=== PATIENT | male | born 1965 | race Caucasian/White ===

== ENCOUNTER 2017-09-16 17:29 | Emergency (ER) | payer OTHER ==
[2017-09-16 17:31] VITALS: BP 96/54; PULSE 85; RESP 18; TEMP 98.3; O2SAT 96
--- NOTE | 2017-09-16 19:04 | PD ---
HPI Chief Complaint: Depression Time Seen by Provider: 18:55 Travel History International Travel<30 days: No Contact w/Intl Traveler<30days: No Traveled to known affect area: No History of Present Illness HPI 52-year-old male presents emergency department with request of a bus pass. Says he is here for bike week and is 'stressed and depressed' because he is unable to get back to [place] where he lives. He thinks maybe did not make enough money which is why he does not have enough money to get home. Doesn't know what to do. Says he went to [facility] for help but they were unable to help. He denies SI/HI. He has no other complaints today. PFSH Past Medical History Cardiovascular Problems: Yes Social History Tobacco Use: Yes Allergies-Medications (Allergen,Severity, Reaction): Coded Allergies: penicillin G (Unverified Allergy, Unknown, 02/11/17) Reported Meds & Prescriptions Reported Meds & Active Scripts Active No Active Prescriptions or Reported Medications Review of Systems Except as stated in HPI: all other systems reviewed are Neg Physical Exam Narrative GENERAL: WD, WN in NAD SKIN: Warm and dry. HEAD: Normocephalic. EYES: No scleral icterus. No injection or drainage. NECK: Supple, trachea midline. MUSCULOSKELETAL: No cyanosis, or edema. BACK: Nontender without obvious deformity. No CVA tenderness. PSYCHIATRIC: No delusional thought processes. No hallucinations. Appropriate mood and affect Data Data Last Documented VS Vital Signs Date Time Temp Pulse Resp B/P (MAP) Pulse Ox O2 Delivery O2 Flow Rate FiO2 09/16/17 17:31 98.3 85 18 96/54 (68) 96 Orders Orders Ed Discharge Order (09/16/17 19:20) MDM Medical Decision Making Medical Screen Exam Complete: Yes Emergency Medical Condition: No Differential Diagnosis homelessness, suicidal ideation, depression, adjustment disorder Narrative Course 52-year-old male presents emergency department requesting a bus pass back to [place]. States he is down here annually for bike week. Says that he may have not made enough money which may be the reason why he cannot afford to go back to [place]. Says he feels "stressed and depressed" but denies suicidal homicidal ideations. Says he went to [facility] who could not provide any resources according to the patient. I spoke with case management who recommended he go to the [facility] for additional resources. I gave him a packet of information for homelessness and advised to call for additional systems. Patient states he "cannot read". Advised that he could use our phone to call these places however he would be discharged home. He says he does have a depressed mood but again denies SI/HI. He just wants to go home. I explained to the patient that this is not an emergency. Advised that he call his family he was in [place] for assistance. [place]" and could not get a ride to where he needed to. JAREK Taylor discussed this case with case management as well. He was given a bus pass for inter city travel. A medical screening exam was performed: At the time of evaluation the presenting medical condition was determined not to be of an emergent nature. The patient was given the option of receiving additional care, but declined. Patient was given options for additional community resources from which to obtain care. The Patient Has Been advised to seek medical attention for their presenting complaint. The patient has been advised to return to the ER at any time if an emergent condition develops. Diagnosis Primary Impression: Non-suicidal depressed mood Scripts No Active Prescriptions or Reported Meds Disposition: 01 DISCHARGE HOME Condition: Stable Taylor Guzmán Sep 16, 2017 19:04
[2017-09-17] MEDS ORDERED: LISI-515 PO (22:26)
[2017-09-17] MEDS ORDERED: ZITHTAB PO (22:26)
[2017-09-17] MEDS ORDERED: PRED20 PO (22:26)
== END 2017-09-16 20:00 | disposition left against medical advice (07) ==
LOC: NED 17:29 → NEPA 20:00
DX: F32.9 Major depressive disorder, single episode, unspecified (principal)
CPT/HCPCS: 99281

== ENCOUNTER 2017-09-17 20:34 | Emergency (ER) | payer MEDICARE, MEDICAID ==
[2017-09-17 20:59] VITALS: BP 140/90; PULSE 82; RESP 18; TEMP 98.1; O2SAT 95
[2017-09-17 21:08] VITALS: RESP 18; O2SAT 98
[2017-09-17] MEDS ORDERED: methylPREDNISolone SOD SUCC 125 MG/2 ML VIAL IV PUSH ONE (21:15)
[2017-09-17] MEDS ORDERED: SODIUM CHLORIDE 0.9% FLUSH 10 ML FLUSH IVF PRN (21:15)
[2017-09-17 21:41] LABS: AUTOMATED NEUTROPHIL # 4.4 TH/MM3 (1.8-7.7); BASOPHIL % 0.7 % (0.0-2.0); EOSINOPHIL # 0.2 TH/MM3 (0-0.4); EOSINOPHIL % 2.9 % (0.0-4.0); HEMATOCRIT 41.6 % (39.0-51.0); HEMOGLOBIN 14.8 GM/DL (13.0-17.0); LYMPH % 21.2 % (9.0-44.0); LYMPHOCYTE # 1.4 TH/MM3 (1.0-4.8); MEAN CELL VOLUME 88.6 FL (80.0-100.0); MEAN CORPUSCULAR HEMOGLOBIN 31.5 PG (27.0-34.0); MEAN CORPUSCULAR HGB CONC 35.5 % (32.0-36.0); MEAN PLATELET VOLUME 8.2 FL (7.0-11.0); MONO % 9.6 % (0.0-8.0); MONOCYTE # 0.6 TH/MM3 (0-0.9); NEUT % 65.6 % (16.0-70.0); PLATELET COUNT 118 TH/MM3 (150-450); RED CELL DISTRIBUTION WIDTH 13.3 % (11.6-17.2); WHITE BLOOD COUNT 6.7 TH/MM3 (4.0-11.0)
[2017-09-17 21:53] LABS: BICARBONATE 25.2 MEQ/L (21.0-32.0); CALCIUM 8.5 MG/DL (8.5-10.1); CREATININE 0.96 MG/DL (0.60-1.30); MAGNESIUM 2.1 MG/DL (1.5-2.5)
--- NOTE | 2017-09-17 21:57 | PD ---
Physical Exam Date Seen by Provider: Sep 17, 2017 Narrative This is a patient with COPD who presents complaining with shortness of breath. He is wheezing. He is also here from [place] for bike week and does not have a way home. Data Data Last Documented VS Vital Signs Date Time Temp Pulse Resp B/P (MAP) Pulse Ox O2 Delivery O2 Flow Rate FiO2 09/17/17 21:08 96 Room Air 09/17/17 21:08 18 09/17/17 20:59 98.1 82 Orders Orders Complete Blood Count With Diff (09/17/17 21:03) Basic Metabolic Panel (Bmp) (09/17/17 21:03) Act Partial Throm Time (Ptt) (09/17/17 21:03) Prothrombin Time / Inr (Pt) (09/17/17 21:03) Magnesium (Mg) (09/17/17 21:03) Ckmb (Isoenzyme) Profile (09/17/17 21:03) Troponin I (09/17/17 21:03) Iv Access Insert/Monitor (09/17/17 21:03) Electrocardiogram (09/17/17 21:03) Ecg Monitoring (09/17/17 21:03) Oximetry (09/17/17 21:03) Oxygen Administration (09/17/17 21:03) Chest, Single Ap (09/17/17 21:03) Sodium Chloride 0.9% Flush (Ns Flush) (09/17/17 21:15) Methylprednisolone So Succ Inj (Solumedr (09/17/17 21:15) Albuterol-Ipratropium Neb (Duoneb Neb) (09/17/17 21:15) Labs Laboratory Tests Test 09/17/17 21:15 White Blood Count 6.7 TH/MM3 Red Blood Count 4.70 MIL/MM3 Hemoglobin 14.8 GM/DL Hematocrit 41.6 % Mean Corpuscular Volume 88.6 FL Mean Corpuscular Hemoglobin 31.5 PG Mean Corpuscular Hemoglobin Concent 35.5 % Red Cell Distribution Width 13.3 % Platelet Count 118 TH/MM3 Mean Platelet Volume 8.2 FL Neutrophils (%) (Auto) 65.6 % Lymphocytes (%) (Auto) 21.2 % Monocytes (%) (Auto) 9.6 % Eosinophils (%) (Auto) 2.9 % Basophils (%) (Auto) 0.7 % Neutrophils # (Auto) 4.4 TH/MM3 Lymphocytes # (Auto) 1.4 TH/MM3 Monocytes # (Auto) 0.6 TH/MM3 Eosinophils # (Auto) 0.2 TH/MM3 Basophils # (Auto) 0.0 TH/MM3 CBC Comment DIFF FINAL Differential Comment Blood Urea Nitrogen 17 MG/DL Creatinine 0.96 MG/DL Random Glucose 107 MG/DL Calcium Level 8.5 MG/DL Magnesium Level 2.1 MG/DL Sodium Level 144 MEQ/L Potassium Level 3.6 MEQ/L Chloride Level 111 MEQ/L Carbon Dioxide Level 25.2 MEQ/L Anion Gap 8 MEQ/L Estimat Glomerular Filtration Rate 83 ML/MIN MDM Supervised Visit with VI: Yes Narrative Course I, Dr. Pinon, have reviewed the advance practice practitioner's documentation and am in agreement, met with the patient face to face, made the diagnosis, and the medical decision making was done by me. *My assessment and Findings: Patient is resting comfortably at this time with respiratory distress. Please see Davina Hawley NP's note for laboratory and radiology results, final diagnosis and disposition Scripts No Active Prescriptions or Reported Meds Cecy Pinon MD Sep 17, 2017 21:57
[2017-09-17 21:58] LABS: TROPONIN I 0.04 NG/ML (0.02-0.05)
[2017-09-17] MEDS: RESP: ALBUTEROL 2.5 MG/IPRATROPIUM 0.5 MG NEB (SCH) INH ×2 (22:00→22:01)
--- NOTE | 2017-09-17 22:03 | PD ---
HPI Chief Complaint: Respiratory Symptoms Time Seen by Provider: 20:47 Travel History International Travel<30 days: No Contact w/Intl Traveler<30days: No Traveled to known affect area: No History of Present Illness HPI 52-year-old male presents to the emergency department for evaluation of shortness of breath. He arrived via EMS. Patient does report history of COPD, CVA, hypertension. He has an albuterol inhaler, but has not been using it. He is also concerned of hypertension stating that he does not have his lisinopril. Patient states that he came down for bike week and does not have money to return to [place]. He was here yesterday for a bus pass. Patient denies any chest pain. No abdominal pain. No vomiting. He denies exacerbating or alleviating factors. Moderate severity. PFSH Past Medical History Cardiovascular Problems: Yes COPD: Yes Diminished Hearing: No Hypertension: Yes Immunizations Current: Yes Past Surgical History Abdominal Surgery: Yes (HERNIA X2) Eye Surgery: Yes (LEFT EYE) Social History Alcohol Use: Yes Tobacco Use: Yes Substance Use: No Allergies-Medications (Allergen,Severity, Reaction): Coded Allergies: penicillin G (Unverified Allergy, Unknown, 09/17/17) Reported Meds & Prescriptions Reported Meds & Active Scripts Active No Active Prescriptions or Reported Medications Review of Systems Except as stated in HPI: all other systems reviewed are Neg Physical Exam Narrative GENERAL: Well-nourished, well-developed male patient, afebrile SKIN: Focused skin assessment warm/dry. HEAD: Normocephalic. Atraumatic. EYES: No scleral icterus. No injection or drainage. NECK: Supple, trachea midline. No JVD or lymphadenopathy. CARDIOVASCULAR: Regular rate and rhythm without murmurs, gallops, or rubs. RESPIRATORY: Breath sounds equal bilaterally. No accessory muscle use. Lung sounds with expiratory wheezes noted throughout. GASTROINTESTINAL: Abdomen soft, non-tender, nondistended. MUSCULOSKELETAL: No cyanosis, or edema. BACK: Nontender without obvious deformity. No CVA tenderness. Data Data Last Documented VS Vital Signs Date Time Temp Pulse Resp B/P (MAP) Pulse Ox O2 Delivery O2 Flow Rate FiO2 09/17/17 21:08 96 Room Air 09/17/17 21:08 18 09/17/17 20:59 98.1 82 Orders Orders Complete Blood Count With Diff (09/17/17 21:03) Basic Metabolic Panel (Bmp) (09/17/17 21:03) Act Partial Throm Time (Ptt) (09/17/17 21:03) Prothrombin Time / Inr (Pt) (09/17/17 21:03) Magnesium (Mg) (09/17/17 21:03) Ckmb (Isoenzyme) Profile (09/17/17 21:03) Troponin I (09/17/17 21:03) Iv Access Insert/Monitor (09/17/17 21:03) Electrocardiogram (09/17/17 21:03) Ecg Monitoring (09/17/17 21:03) Oximetry (09/17/17 21:03) Oxygen Administration (09/17/17 21:) Chest, Single Ap (09/17/17 21:03) Sodium Chloride 0.9% Flush (Ns Flush) (09/17/17 21:15) Methylprednisolone So Succ Inj (Solumedr (09/17/17 21:15) Albuterol-Ipratropium Neb (Duoneb Neb) (09/17/17 21:15) CKMB (09/17/17 21:15) CKMB% (09/17/17 21:15) Sodium Chlorid 0.9% 500 Ml Inj (Ns 500 M (09/17/17 22:30) Labs Laboratory Tests Test 09/17/17 21:15 White Blood Count 6.7 TH/MM3 Red Blood Count 4.70 MIL/MM3 Hemoglobin 14.8 GM/DL Hematocrit 41.6 % Mean Corpuscular Volume 88.6 FL Mean Corpuscular Hemoglobin 31.5 PG Mean Corpuscular Hemoglobin Concent 35.5 % Red Cell Distribution Width 13.3 % Platelet Count 118 TH/MM3 Mean Platelet Volume 8.2 FL Neutrophils (%) (Auto) 65.6 % Lymphocytes (%) (Auto) 21.2 % Monocytes (%) (Auto) 9.6 % Eosinophils (%) (Auto) 2.9 % Basophils (%) (Auto) 0.7 % Neutrophils # (Auto) 4.4 TH/MM3 Lymphocytes # (Auto) 1.4 TH/MM3 Monocytes # (Auto) 0.6 TH/MM3 Eosinophils # (Auto) 0.2 TH/MM3 Basophils # (Auto) 0.0 TH/MM3 CBC Comment DIFF FINAL Differential Comment Prothrombin Time 10.7 SEC Prothromb Time International Ratio 1.1 RATIO Activated Partial Thromboplast Time 28.0 SEC Blood Urea Nitrogen 17 MG/DL Creatinine 0.96 MG/DL Random Glucose 107 MG/DL Calcium Level 8.5 MG/DL Magnesium Level 2.1 MG/DL Sodium Level 144 MEQ/L Potassium Level 3.6 MEQ/L Chloride Level 111 MEQ/L Carbon Dioxide Level 25.2 MEQ/L Anion Gap 8 MEQ/L Estimat Glomerular Filtration Rate 83 ML/MIN Total Creatine Kinase 378 U/L Creatine Kinase MB 13.4 NG/ML Creatine Kinase MB % 3.5 % Troponin I 0.04 NG/ML MDM Medical Decision Making Medical Screen Exam Complete: Yes Emergency Medical Condition: Yes Medical Record Reviewed: Yes Interpretation(s) Last Impressions Chest X-Ray 09/17/172102 Signed Impressions: Service Date/Time: Sunday, September 17, 2017 21:29 - CONCLUSION: 1. Subsegmental basilar airspace disease. No effusion or pneumothorax. Stuart Finley MD Differential Diagnosis COPD exacerbation versus bronchitis versus pneumonia versus ACS Narrative Course 52-year-old male presents to the emergency department for shortness of breath with history of COPD. EKG, CBC, BMP, magnesium, CK, troponin, PTT, PT/INR ordered and pending. Chest x-ray is ordered and pending. Patient is given DuoNeb 3, Solu-Medrol 125 mg IV. CBC shows no acute abnormality. BMP shows no acute abnormality. CK is 378. Troponin is 0.04. Coags are unremarkable. Chest x-ray shows Subsegmental basilar airspace disease. No effusion or pneumothorax. Patient will be discharged with a prescription for azithromycin, prednisone. I will also give him a refill of his lisinopril. Patient is upset because he does not have a ride back to [place] and has no money. The patient was discharged in stable condition with instructions, including return instructions and follow up instructions. Diagnosis Primary Impression: COPD exacerbation Referrals: Primary Care Physician call for appointment Patient Instructions: COPD (Chronic Obstructive Pulmonary Disease) (ED), General Instructions Additional Instructions: Take antibiotic as directed until gone. Take prednisone as directed. Start this tomorrow. Take lisinopril daily. This is a refill your prescription. Follow-up with a primary care physician. Return to the emergency department for any acute worsening of symptoms. Med/Other Pt SpecificInfo: Prescription(s) given Scripts Lisinopril (Lisinopril) 20 Mg Tab 20 MG PO DAILY, #30 TAB 0 Refills Prov: Davina Hawley 09/17/17 Prednisone (Prednisone) 20 Mg Tab 40 MG PO DAILY, #10 TAB 0 Refills Take 40 mg (2 tablets) daily for 5 days Prov: Davina Hawley 09/17/17 Azithromycin (Zithromax Z-Kade) 250 Mg Dspk 250 MG PO DIRECTED for Infection, #1 DSPK 0 Refills 500 MG (2 tabs) day 1, then 1 tab days 2-5. Prov: Davina Hawley 09/17/17 Disposition: 01 DISCHARGE HOME Condition: Stable Davina Hawley Sep 17, 2017 22:03
[2017-09-17 22:05] LABS: INTERNATIONAL NORMALIZED RATIO 1.1 RATIO; PROTHROMBIN TIME - PATIENT 10.7 SEC (9.8-11.6)
--- NOTE | 2017-09-17 22:17 | RADRPT ---
EXAM DATE/TIME: 09/17/2017 21:29 [facility] COMPARISON: No previous studies available for comparison. INDICATIONS : Shortness of breath. MEDICAL HISTORY : Chronic obstructive pulmonary disease. SURGICAL HISTORY : None. ENCOUNTER: Initial ACUITY: 1 day PAIN SCORE: 0/10 LOCATION: chest FINDINGS: A single view of the chest demonstrates subsegmental basilar airspace disease. No effusion. No pneumo thorax. Heart size upper limits normal. CONCLUSION: 1. Subsegmental basilar airspace disease. No effusion or pneumothorax. Stuart Finley MD on September 17, 2017 at 22:14 Board Certified Radiologist. This report was verified electronically.
[2017-09-17] MEDS ORDERED: LISI-515 PO (22:26)
[2017-09-17] MEDS ORDERED: PRED20 PO (22:26)
[2017-09-17] MEDS ORDERED: ZITHTAB PO (22:26)
[2017-09-17 22:30] VITALS: BP 156/88; PULSE 78; RESP 18; O2SAT 98
[2017-09-17] MEDS ORDERED: SODIUM CHLORID 0.9% 500 ML INJ 500 ML IV ONE (22:30)
--- NOTE | 2017-09-18 14:18 | EKG ---
Date Performed: 09/17/2017 Time Performed: 20:56:23 PTAGE: 52 years EKG: Sinus rhythm WITH FREQUENT SUPRAVENTRICULAR PREMATURE COMPLEXES LEFT ATRIAL ENLARGEMENT MARKED LEFT AXIS DEVIATIO N LEFT BUNDLE BRANCH BLOCK ABNORMAL ECG NO PREVIOUS TRACING DOCTOR: Hudson Johnson Interpretating Date/Time 09/18/2017 14:16:22
== END 2017-09-17 22:48 | disposition home or self-care (01) ==
LOC: NEPC 20:34
DX: J44.1 Chronic obstructive pulmonary disease with (acute) exacerbation (principal); R94.31 Abnormal electrocardiogram [ECG] [EKG]; I10 Essential (primary) hypertension; Z86.73 Personal history of transient ischemic attack (TIA), and cerebral infarction without residual deficits; Z72.0 Tobacco use
CPT/HCPCS: 71045; 80048; 82550; 82552; 83735; 84484; 85025; 85610; 85730; 93005; 94640; 94664; 96374; 99285; J2930; J7040

== ENCOUNTER 2017-09-19 00:24 | Emergency (ER) | payer MEDICAID, MEDICARE ==
[~2017-09-19] VITALS: Ht 180.3 cm; Wt 115.0 kg
[~2017-09-19 00:24] MED LIST: LISI-515 PO; PRED20 PO; ZITHTAB PO
[2017-09-19 00:27] VITALS: BP 151/89; PULSE 78; RESP 18; TEMP 98; O2SAT 97
--- NOTE | 2017-09-19 02:34 | PD ---
HPI Chief Complaint: Medication Refill Request Time Seen by Provider: 02:26 Travel History International Travel<30 days: No Contact w/Intl Traveler<30days: No Traveled to known affect area: No History of Present Illness HPI 52-year-old white male presents emergency department requesting evaluation of hypertension. He states that he is out of his lisinopril. This is a patient who was just seen the day before for what he states as COPD exacerbation and was given medications as well as a refill of his lisinopril. This is his third visit to the ER in the past week. He is visiting from [place] for . He states that he has nowhere to go and he has out of money. Symptoms are mild. Exacerbated by lack of funds and home. Alleviated by lane and a place to stay History Past Medical Histgory Narrative Medical COPD, hypertension Tetanus Vaccination: Unknown Social History Alcohol Use: Yes Tobacco Use: Yes Allergies-Medications (Allergen,Severity, Reaction): Coded Allergies: penicillin G (Unverified Allergy, Unknown, 09/17/17) Reported Meds & Prescriptions Reported Meds & Active Scripts Active Lisinopril 20 Mg Tab 20 Mg PO DAILY Review of Systems Except as stated in HPI: all other systems reviewed are Neg Physical Exam Narrative GENERAL: This is a well-nourished, well-developed patient, in no apparent distress. SKIN: No rashes, ecchymoses or lesions. Warm and dry. HEAD: Atraumatic. Normocephalic. EYES: PERRL, EOMI, no discharge or injection. No scleral icterus. EARS: Clear NOSE: Nasal turbinates appear normal. THROAT: Mucosa pink and moist. Airway patent. NECK: Trachea midline. supple, moves head freely. LUNGS: Clear to auscultation. CV: Regular in rhythm. ABDOMEN: Soft nontender. EXT: No clubbing cyanosis or edema. Data Data Last Documented VS Vital Signs Date Time Temp Pulse Resp B/P (MAP) Pulse Ox O2 Delivery O2 Flow Rate FiO2 09/19/17 00:27 98.0 78 18 151/89 (109) 97 Orders Orders Lisinopril (Prinivil) (09/19/17 02:45) Ed Discharge Order (09/19/17 02:37) MDM Medical Screen Exam Complete: Yes Emergency Medical Condition: No Differential Diagnosis Differential diagnosis: Hypertension, homelessness, malingering Narrative Course A medical screening exam was performed: At the time of evaluation the presenting medical condition was determined not to be of an emergent nature. The patient was given the option of receiving additional care, but declined. Patient was given options for additional community resources from which to obtain care. The Patient Has Been advised to seek medical attention for their presenting complaint. The patient has been advised to return to the ER at any time if an emergent condition develops. The patient is opted to stay. He is given lisinopril 10 mg p.o. He is also given a renewal of his lisinopril 20 mg #30. Primary Impression: Hypertension Additional Impression: Medication refill Patient Instructions: General Instructions Additional Instructions: Rest. lisinopril. Follow-up with a medical doctor in 1 week. Stop smoking. Return to the ER for emergencies. Med/Other Pt SpecificInfo: Prescription(s) given Scripts Lisinopril (Lisinopril) 20 Mg Tab 20 MG PO DAILY, #30 TAB 0 Refills Prov: Cecy Pinon MD 09/19/17 Disposition: 01 DISCHARGE HOME Condition: Stable Stuart Buchanan Sep 19, 2017 02:34
[2017-09-19] MEDS ORDERED: LISI-515 PO (02:37)
[2017-09-19] MEDS ORDERED: LISINOPRIL 10 MG TAB PO ONE (02:45)
== END 2017-09-19 03:25 | disposition home or self-care (01) ==
LOC: NEPD 00:24
DX: I10 Essential (primary) hypertension (principal); Z76.0 Encounter for issue of repeat prescription; J44.9 Chronic obstructive pulmonary disease, unspecified; Z91.14 Patient's other noncompliance with medication regimen; Z72.0 Tobacco use
CPT/HCPCS: 99281